=== PATIENT | female | born 1945 | race Caucasian/White ===

== ENCOUNTER → 2022-03-14 | Outpatient (CLI) | payer MEDICARE, BC ==
[2022-03-14 18:53] LABS: HCT 38.3 % (37.2-46.3); HGB 12.3 g/dL (12.0-15.0); MCHC 32.1 g/dL (32.0-37.0); MCV 90.3 fL (80.0-97.0); Mean Platelet Volume 10.3 fL (9.5-12.2); NRBC Per 100 WBC 0 /100 WBCS (0.0-0.0); Platelet Count 116 X 10*3/uL (140-440); RBC 4.24 X 10*6/uL (4.10-5.20); RDW 13.5 % (11.5-14.5); WBC 4.51 X 10*3/uL (4.50-10.00)
[2022-03-14 18:57] LABS: African American GFR (CKD) 79.9 (60.0-200.0); Anion Gap 10.4 mmol/L (10.00-18.00); Blood Urea Nitrogen 9.6 mg/dL (9.0-27.0); Carbon Dioxide 23.9 mmol/L (20.0-27.5); Non-African American GFR(CKD) 68.9 (60.0-200.0)
== END | disposition home or self-care (01) ==
LOC: LABPAT 11:06
PROVIDERS: ATTEND Internal Medicine
DX: Z01.812 Encounter for preprocedural laboratory examination (principal); I65.23 Occlusion and stenosis of bilateral carotid arteries
CPT/HCPCS: 80051; 82565; 84520; 85027

== ENCOUNTER 2022-03-22 06:59 | Inpatient (IN) | payer MEDICARE, BC ==
[~2022-03-22 06:59] MED LIST: ALPRAZolam 0.25 MG TAB PO PRN; ALPRAZolam 0.5 MG TAB PO PRN; NITROGLYCERIN SL TABS 0.4 MG TAB SUBLINGUAL PRN; SODIUM CHLORIDE 0.9% 1,000 ML in EMPTY BAG 1 BAG IV ONE
[2022-03-22] MEDS ORDERED: ASPIRIN 81 MG ONE (07:14)
[2022-03-22 07:32] VITALS: RESP 18; TEMP 96.9
[2022-03-22 07:35] LABS: Glucose,Whole Blood 87 mg/dL (70-110)
[2022-03-22 07:38] LABS: Basophils # (A) 0.1 k/uL (0-0.2); Basophils % (A) 1 %; Eosinophils # (A) 0.2 k/uL (0-0.7); Eosinophils % (A) 4 %; HCT 40.8 % (34.0-46.0); HGB 13.9 gm/dL (11.4-16.0); Lymphocytes # (A) 1.7 k/uL (1.0-4.8); Lymphocytes % (A) 37 %; MCH 30.8 pg (25.0-35.0); MCV 90.6 fL (80.0-100.0); Mean Platelet Volume 7.2; Monocytes # (A) 0.4 k/uL (0-1.0); Monocytes % (A) 8 %; Neutrophils # (A) 2.1 k/uL (1.3-7.7); Neutrophils % (A) 47 %; Platelet Count 128 k/uL (150-450); RBC 4.51 m/uL (3.80-5.40); WBC 4.5 k/uL (3.8-10.6)
[2022-03-22] MEDS ORDERED: HEPARIN SODIUM 1,000 UN/ML (10ML VL) ONE (08:52)
[2022-03-22] MEDS ORDERED: LIDOCAINE 1% INJ 10MG/ML (30 ML VIAL-PF) SQ ONE (08:53)
[2022-03-22] MEDS ORDERED: IOPAMIDOL-250 100ML BTL INTRAARTER ONE ×2 (09:22→09:23)
--- NOTE | 2022-03-22 10:09 | IR ---
EXAMINATION TYPE: IR angio carotid cerv BILAT DATE OF EXAM: 03/22/2022 COMPARISON: NONE HISTORY: Fluoroscopy time. Fluoroscopy was provided to the referring clinician.
--- NOTE | 2022-03-22 10:37 | P.PCN ---
Description of Procedure: DESCRIPTION OF PROCEDURE(S): PROCEDURES PERFORMED: Ascending aortic root angiography, bilateral selective carotid angiography INDICATION: Asymptomatic carotid artery stenosis CONSENT:I have discussed the risks, benefits and alternative therapies for the above-mentioned procedure and for both sedation/analgesia as well as necessary blood product administration, if indicated, as they pertain to this patient. The patient has indicated understanding and acceptance of the risks and procedures discussed. PROCEDURE: After the risks, benefits and alternatives of the above mentioned procedure explained in detail with the patient, informed consent was obtained. Patient was taken to the catheterization lab and prepped and draped in usual fashion. 1% lidocaine was used to anesthetize the right femoral area. A 6- [place]an sheath was placed in the right femoral artery using modified Seldinger technique. A 5-Ch[place]an pigtail catheter was inserted to the ascending aorta and DSA imaging was obtained. Next using VTK catheter the proximal right and left internal carotid arteries were engaged and selective angiography was performed. Given significant bleeding from stoma site in the past, trial of antiplatelets was recommended first before any intervention performed. A right femoral angiogram was performed and anatomoy was suitable for closure. A 6Fr Angioseal was placed with hemostasis achieved. The patient tolerated the procedure well. Patient was transported back to the post catheterization holding area in stable condition. Conscious Sedation: Patient was monitored under the direct supervision of vision of myself for conscious sedation using Versed and fentanyl for a total duration of 29 minutes ASCENDING AORTA: There is no significant aneurysm or stenosis. 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 Right internal carotid artery: 40% proximal ASHLEY stenosis. Left common carotid: No significant stenosis Left internal carotid artery: There is a heavily calcified 90% focal stenosis of the left internal carotid artery at the level of the bifurcation. FINAL IMPRESSION: 1. Bovine arch 2. Right internal carotid artery 40% stenosis and left internal carotid artery 90% stenosis. PLAN: 1. Aggressive risk factor modification per most recent ACC/AHA guidelines. 2. Patient has been having significant bleeding in the past from her stoma requ iring iron transfusions despite not being on antiplatelets. Recommend trial of aspirin and Plavix for 4 weeks and if no significant change in bleeding, would recommend revascularization of the LICA.
[2022-03-22 14:40] VITALS: BP 109/56; PULSE 68
== END 2022-03-22 14:42 | disposition home or self-care (01) | DRG 68 ==
LOC: 2ORMAIN 06:59
PROVIDERS: ADMIT Internal Medicine; ATTEND Internal Medicine
PROC: B3151ZZ Fluoroscopy of Bilateral Common Carotid Arteries using Low Osmolar Contrast (ICD-10-PCS; principal; 2022-03-22 08:30)
PROC: B3101ZZ Fluoroscopy of Thoracic Aorta using Low Osmolar Contrast (ICD-10-PCS; principal; 2022-03-22 08:30)
PROC: B3181ZZ Fluoroscopy of Bilateral Internal Carotid Arteries using Low Osmolar Contrast (ICD-10-PCS; principal; 2022-03-22 08:30)
DX: I65.23 Occlusion and stenosis of bilateral carotid arteries (principal); E11.9 Type 2 diabetes mellitus without complications; D50.9 Iron deficiency anemia, unspecified; I65.01 Occlusion and stenosis of right vertebral artery; Z20.822 Contact with and (suspected) exposure to COVID-19; E78.5 Hyperlipidemia, unspecified; I10 Essential (primary) hypertension; I35.0 Nonrheumatic aortic (valve) stenosis; Z79.82 Long term (current) use of aspirin; Z79.899 Other long term (current) drug therapy
CPT/HCPCS: 85025; 87635

== ENCOUNTER 2022-03-24 21:16 | Emergency (ER) | payer MEDICARE, BC ==
[2022-03-24 21:25] VITALS: TEMP 98.4
[2022-03-24 22:35] LABS: Basophils % (A) 1 %; Eosinophils # (A) 0.2 k/uL (0-0.7); Eosinophils % (A) 5 %; HCT 35.5 % (34.0-46.0); Lymphocytes # (A) 1.6 k/uL (1.0-4.8); Lymphocytes % (A) 39 %; MCH 30.4 pg (25.0-35.0); MCHC 33.7 g/dL (31.0-37.0); Mean Platelet Volume 7.3; Monocytes # (A) 0.3 k/uL (0-1.0); Monocytes % (A) 8 %; Neutrophils # (A) 1.9 k/uL (1.3-7.7); Neutrophils % (A) 45 %; Platelet Count 108 k/uL (150-450); RBC 3.94 m/uL (3.80-5.40); RDW 13.1 % (11.5-15.5); WBC 4.1 k/uL (3.8-10.6)
--- NOTE | 2022-03-24 22:38 | ED ---
General Adult HPI - General Chief complaint: GI Bleed Stated complaint: Colostomy bag issue Time Seen by Provider: 03/24/22 21:29 Source: patient Mode of arrival: ambulatory - History of Present Illness Initial comments: Patient is a 76-year-old woman who presents to have evaluation of her stoma site. Patient has long-standing colostomy and is having some bleeding at the stump. 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 She had called the physician and was instructed to come in to ensure that this was not GI bleeding. The patient describes the bleeding as being from the periphery of the site and notes that she has had this previously but it usually stops bleeding spontaneously. She states that it has continued to bleed and she has been using a towel to absorb the blood and it just continues. She is denying signs and symptoms of anemia. No lightheadedness, palpitations, dyspnea, diaphoresis or syncope. -: hour(s) Severity scale (1-10): 0 Consistency: constant Improves with: none Worsens with: none Associated Symptoms: denies other symptoms Treatments Prior to Arrival: none - Related Data Home Medications Medication Instructions Recorded Confirmed Atorvastatin [Lipitor] 40 mg PO DAILY 04/11/19 03/20/22 lisinopriL [Prinivil] 10 mg PO DAILY 04/11/19 03/22/22 Cyanocobalamin [Vitamin B-12 1,000 mcg SQ WEEKLY 03/21/22 03/22/22 Injection] Previous Rx's Medication Instructions Recorded Aspirin [[place] Aspirin EC] 81 mg PO DAILY #90 tab 03/22/22 Clopidogrel [Plavix] 75 mg PO DAILY #90 tablet 03/22/22 Allergies Allergy/AdvReac Type Severity Reaction Status Date / Time No Known Allergies Allergy Verified 03/24/22 21:25 Review of Systems ROS Statement: Those systems with pertinent positive or pertinent negative responses have been documented in the HPI. ROS Other: All systems not noted in ROS Statement are negative. Constitutional: Denies: fever, chills Respiratory: Denies: cough, dyspnea Cardiovascular: Denies: chest pain, palpitations Gastrointestinal: Denies: abdominal pain, nausea, vomiting Skin: Denies: rash Neurological: Denies: headache, weakness Hematological/Lymphatic: Reports: easy bleeding (Plavix use) Past Medical History Past Medical History: Cancer, Diabetes Mellitus, Hyperlipidemia, Hypertension Additional Past Medical History / Comment(s): RECTAL CANCER. COLOSTOMY-stoma site sometimes bleeds, diet controlled diabetic, iron deficient anemia-has had iron infusions. ABDOMINAL HERNIA. History of Any Multi-Drug Resistant Organisms: None Reported Past Surgical History: Bowel Resection, Hernia Repair Additional Past Surgical History / Comment(s): colostomy Past Anesthesia/Blood Transfusion Reactions: No Reported Reaction Past Psychological History: No Psychological Hx Reported Smoking Status: Never smoker Past Alcohol Use History: None Reported Past Drug Use History: None Reported General Exam General appearance: alert, in no apparent distress Head exam: Present: atraumatic, normocephalic Eye exam: Present: normal appearance Neck exam: Present: normal inspection Respiratory exam: Present: normal lung sounds bilaterally. Absent: respiratory distress, wheezes, rales, rhonchi, stridor Cardiovascular Exam: Present: regular rate, normal rhythm, normal heart sounds. Absent: systolic murmur, diastolic murmur, rubs, gallop GI/Abdominal exam: Present: soft. Absent: distended, tenderness, guarding, rebound, rigid, mass Extremities exam: Present: normal inspection Back exam: Present: normal inspection Neurological exam: Present: alert Skin exam: Present: warm, dry, intact, normal color. Absent: rash Course Vital Signs 03/24/22 21:20 Temperature 98.4 F Pulse Rate 73 Respiratory 19 Rate Blood Pressure 181/69 O2 Sat by Pulse 97 Oximetry Medical Decision Making - Lab Data Result diagrams: 03/24/22 22:14 03/24/22 22:14 Lab Results 03/24/22 03/24/22 03/24/22 Range/Units 22:14 22:14 22:14 WBC 4.1 (3.8-10.6) k/uL RBC 3.94 (3.80-5.40) m/uL Hgb 12.0 (11.4-16.0) gm/dL Hct 35.5 (34.0-46.0) % MCV 90.0 (80.0-100.0) fL MCH 30.4 (25.0-35.0) pg MCHC 33.7 (31.0-37.0) g/dL RDW 13.1 (11.5-15.5) % Plt Count 108 L (150-450) k/uL MPV 7.3 Neutrophils % 45 % Lymphocytes % 39 % Monocytes % 8 % Eosinophils % 5 % Basophils % 1 % Neutrophils # 1.9 (1.3-7.7) k/uL Lymphocytes # 1.6 (1.0-4.8) k/uL Monocytes # 0.3 (0-1.0) k/uL Eosinophils # 0.2 (0-0.7) k/uL Basophils # 0.0 (0-0.2) k/uL PT 11.5 (9.0-12.0) sec INR 1.1 (<1.2) APTT 24.7 (22.0-30.0) sec Sodium 137 (137-145) mmol/L Potassium 4.0 (3.5-5.1) mmol/L Chloride 108 H (98-107) mmol/L Carbon Dioxide 23 (22-30) mmol/L Anion Gap 6 mmol/L BUN 12 (7-17) mg/dL Creatinine 0.86 (0.52-1.04) mg/dL Est GFR (CKD-EPI)AfAm 77 (>60 ml/min/1.73 sqM) Est GFR (CKD-EPI)NonAf 66 (>60 ml/min/1.73 sqM) Glucose 118 H (74-99) mg/dL Plasma Lactic Acid Rowdy (0.7-2.0) mmol/L Calcium 8.9 (8.4-10.2) mg/dL Total Bilirubin 0.5 (0.2-1.3) mg/dL AST 42 H (14-36) U/L ALT 22 (4-34) U/L Alkaline Phosphatase 63 (38-126) U/L Troponin I (0.000-0.034) ng/mL Total Protein 6.8 (6.3-8.2) g/dL Albumin 3.7 (3.5-5.0) g/dL 03/24/22 03/24/22 Range/Units 22:14 22:14 WBC (3.8-10.6) k/uL RBC (3.80-5.40) m/uL Hgb (11.4-16.0) gm/dL Hct (34.0-46.0) % MCV (80.0-100.0) fL MCH (25.0-35.0) pg MCHC (31.0-37.0) g/dL RDW (11.5-15.5) % Plt Count (150-450) k/uL MPV Neutrophils % % Lymphocytes % % Monocytes % % Eosinophils % % Basophils % % Neutrophils # (1.3-7.7) k/uL Lymphocytes # (1.0-4.8) k/uL Monocytes # (0-1.0) k/uL Eosinophils # (0-0.7) k/uL Basophils # (0-0.2) k/uL PT (9.0-12.0) sec INR (<1.2) APTT (22.0-30.0) sec Sodium (137-145) mmol/L Potassium (3.5-5.1) mmol/L Chloride (98-107) mmol/L Carbon Dioxide (22-30) mmol/L Anion Gap mmol/L BUN (7-17) mg/dL Creatinine (0.52-1.04) mg/dL Est GFR (CKD-EPI)AfAm (>60 ml/min/1.73 sqM) Est GFR (CKD-EPI)NonAf (>60 ml/min/1.73 sqM) Glucose (74-99) mg/dL Plasma Lactic Acid Rowdy 1.0 (0.7-2.0) mmol/L Calcium (8.4-10.2) mg/dL Total Bilirubin (0.2-1.3) mg/dL AST (14-36) U/L ALT (4-34) U/L Alkaline Phosphatase (38-126) U/L Troponin I <0.012 (0.000-0.034) ng/mL Total Protein (6.3-8.2) g/dL Albumin (3.5-5.0) g/dL Disposition Clinical Impression: Gastrointestinal hemorrhage Disposition: HOME SELF-CARE Condition: Good Instructions (If sedation given, give patient instructions): Gastrointestinal Bleeding (ED) Is patient prescribed a controlled substance at d/c from ED?: No Referrals: None,Stated [REFERRING] - 1-2 days
[2022-03-24 22:43] LABS: INR 1.1 (<1.2); Partial Thromboplastin Time 24.7 sec (22.0-30.0); Prothrombin Time 11.5 sec (9.0-12.0)
[2022-03-24 23:03] LABS: Albumin 3.7 g/dL (3.5-5.0); Calcium 8.9 mg/dL (8.4-10.2); Total Bilirubin 0.5 mg/dL (0.2-1.3); Total Protein 6.8 g/dL (6.3-8.2)
[2022-03-25 00:35] VITALS: BP 158/68; PULSE 60; RESP 18
== END 2022-03-25 00:35 | disposition home or self-care (01) ==
LOC: EC 21:16
DX: K92.2 Gastrointestinal hemorrhage, unspecified (principal); E11.9 Type 2 diabetes mellitus without complications; I10 Essential (primary) hypertension; E78.5 Hyperlipidemia, unspecified; Z79.82 Long term (current) use of aspirin; Z79.899 Other long term (current) drug therapy
CPT/HCPCS: 36415; 80053; 83605; 84484; 85025; 85610; 85730; 99284

== ENCOUNTER → 2022-06-13 | Outpatient (CLI) | payer MEDICARE, BC ==
[2022-06-13 14:18] LABS: HCT 37.7 % (37.2-46.3); HGB 12.3 g/dL (12.0-15.0); MCH 29.9 pg (27.0-32.0); MCHC 32.6 g/dL (32.0-37.0); MCV 91.5 fL (80.0-97.0); NRBC Per 100 WBC 0 /100 WBCS (0.0-0.0); Platelet Count 128 X 10*3/uL (140-440); RBC 4.12 X 10*6/uL (4.10-5.20); RDW 13.6 % (11.5-14.5); WBC 3.59 X 10*3/uL (4.50-10.00)
[2022-06-13 14:38] LABS: African American GFR (CKD) 89.5 (60.0-200.0); Anion Gap 9.2 mmol/L (10.00-18.00); Blood Urea Nitrogen 12.5 mg/dL (9.0-27.0); Carbon Dioxide 27.2 mmol/L (20.0-27.5); Non-African American GFR(CKD) 77.2 (60.0-200.0); Potassium 4.4 mmol/L (3.5-5.5)
== END | disposition home or self-care (01) ==
LOC: LABWHC1 09:43
PROVIDERS: ATTEND Internal Medicine
DX: Z01.818 Encounter for other preprocedural examination (principal)
CPT/HCPCS: 36415; 80051; 82565; 84520; 85027

== ENCOUNTER 2022-06-21 09:00 | Inpatient (IN) | payer MEDICARE, BC ==
[2022-06-20 11:22] VITALS: BMI 27.1
[~2022-06-21 09:00] MED LIST changes: +RX INFO: IV CONTRAST WAS GIVEN 1 EACH MISC MISCELLANE PRN; -SODIUM CHLORIDE 0.9% 1,000 ML in EMPTY BAG 1 BAG IV ONE
[2022-06-21 09:41] LABS: Glucose,Whole Blood 95 mg/dL (70-110)
[2022-06-21] MEDS: SODIUM CHLORIDE 0.9% 1,000 ML in EMPTY BAG 1 BAG IV ONE ×2 (09:47→17:25)
[2022-06-21] MEDS ORDERED: LIDOCAINE 1% INJ 10MG/ML (30 ML VIAL-PF) SQ ONE (13:00)
[2022-06-21] MEDS ORDERED: HEPARIN SODIUM 1,000 UN/ML (10ML VL) IV ONE (13:10)
[2022-06-21] MEDS ORDERED: IOPAMIDOL-250 100ML BTL INTRAARTER ONE (13:33)
[2022-06-21] MEDS ORDERED: IOPAMIDOL-370 100ML BTL INJ ONE ×3 (13:33→13:45)
[2022-06-21] MEDS ORDERED: ATROPINE SULFATE 0.1 MG/ML 10ML SYRINGE IV ONE (13:45)
--- NOTE | 2022-06-21 14:28 | IR ---
EXAMINATION TYPE: IR stent intravas non coronary DATE OF EXAM: 06/21/2022 COMPARISON: NONE HISTORY: Fluoroscopy time. Fluoroscopy was provided to the referring clinician.
[2022-06-21] MEDS ORDERED: ATROPINE SULFATE 0.1 MG/ML 10ML SYRINGE IV PRN (14:40)
[2022-06-21] MEDS ORDERED: MAG HYDROX/AL HYDROX/SIMETH 30 ML CUP PO PRN (14:40)
[2022-06-21] MEDS: NOREPINEPHRINE 4 MG in SODIUM CHLORIDE 0.9% 250 ML IV SCH (15:07)
[2022-06-21 16:31] LABS: Glucose,Whole Blood 90 mg/dL (70-110)
--- NOTE | 2022-06-21 20:02 | P.OP ---
Description of Procedure: DESCRIPTION OF PROCEDURE(S): PROCEDURES PERFORMED: Ascending aortic root angiography, selective left carotid angiography, carotid stent with 8 x 6 x 30mm Xact carotid stent, post dilated with a 5.0 balloon INDICATION: Severe asymptomatic carotid artery stenosis CONSENT:I have discussed the risks, benefits and alternative therapies for the above-mentioned procedure and for both sedation/analgesia as well as necessary blood product administration, if indicated, as they pertain to this patient. The patient has indicated understanding and acceptance of the risks and procedures discussed. PROCEDURE: After the risks, benefits and alternatives of the above mentioned procedure explained in detail with the patient, informed consent was obtained. Patient was taken to the catheterization lab and prepped and draped in usual fashion. 1% lidocaine was used to anesthetize the right femoral area. A 6- [place] sheath was placed in the right femoral artery using modified Seldinger technique. A 5-[place] pigtail catheter was inserted to the ascending aorta and DSA imaging was obtained. Next using VTK catheter the proximal left common carotid artery was engaged and selective angiography was performed. Angiography showed severe 90% stenosis and therefore intervention was recommended. Heparin was given for ACT greater than 250. Next a 0.035 glide advantage was advanced into the left external carotid artery. Over the glide advantage wire, a 6-[place] destination sheath was advanced into the left common carotid artery. Next a 0.014 Embo shield distal embolic protection device was advanced into the petrous portion of the left internal carotid artery. The filter was then deployed. Next predilation was performed with a 3.0 x 20mm then a 4.0 x 20 mm balloon. Next a 8 x 6 x 30 mm Xact carotid stent was deployed. The stent was postdilated with a 5.0 x 20 mm balloon. Pre-intervention there was 90% stenosis with uninhibited flow and postintervention there was 10% stenosis with uninhibited flow. A right femoral angiogram was performed and anatomoy was suitable for closure. A 6Fr Angioseal was placed with hemostasis achieved. The patient tolerated the procedure well. Patient was transported back to the post catheterization holding area in stable condition. ASCENDING AORTA: There is no significant aneurysm or stenosis. 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 Right common carotid: 0% stenosis Right internal carotid artery: Not fully imaged however does not appear to have any significant stenosis Left common carotid: 0% stenosis Left internal carotid artery: 90% stenosis FINAL IMPRESSION: 1. 90% left internal carotid artery stenosis, status post carotid stent with 8 x 6 x 30mm Xact carotid stent, post dilated with a 5.0 balloon with excellent result PLAN: 1. Aggressive risk factor modification per most recent ACC/AHA guidelines. 2. Continue dual antiplatelets with aspirin and Plavix for minimum of 3 months. 3. Monitor for any hemodynamic or electrical instability.
[2022-06-22 04:15] LABS: Basophils % (A) 1 %; Eosinophils # (A) 0.2 k/uL (0-0.7); Eosinophils % (A) 4 %; HCT 32.8 % (34.0-46.0); Lymphocytes # (A) 1.3 k/uL (1.0-4.8); Lymphocytes % (A) 34 %; MCH 31.1 pg (25.0-35.0); MCHC 33.6 g/dL (31.0-37.0); MCV 92.5 fL (80.0-100.0); Monocytes # (A) 0.3 k/uL (0-1.0); Monocytes % (A) 8 %; Neutrophils % (A) 51 %; RBC 3.55 m/uL (3.80-5.40); RDW 13.1 % (11.5-15.5); WBC 3.9 k/uL (3.8-10.6)
[2022-06-22 04:40] LABS: African American GFR (CKD) >90 (>60 ml/min/1.73 sqM); Anion Gap 8 mmol/L; Blood Urea Nitrogen 10 mg/dL (7-17); Calcium 7.8 mg/dL (8.4-10.2); Carbon Dioxide 19 mmol/L (22-30); Chloride 110 mmol/L (98-107); Glucose 108 mg/dL (74-99); Non-African American GFR(CKD) >90 (>60 ml/min/1.73 sqM); Potassium 3.9 mmol/L (3.5-5.1); Sodium 137 mmol/L (137-145)
[2022-06-22 04:45] LABS: Platelet Count 78 k/uL (150-450)
[2022-06-22] MEDS ORDERED: Potassium Replacement Protocol 1 EACH MISC MISCELLANE PRN (04:55)
[2022-06-22] MEDS ORDERED: POTASSIUM CHLORIDE ER 20 MEQ TAB.ER PO SCH (05:00)
[2022-06-22] MEDS: lisinopriL 10 MG TAB PO SCH (10:02)
[2022-06-22] MEDS: MULTIVITAMINS, THERA 1 EACH TAB PO SCH (10:43)
[2022-06-22] MEDS: ATORVASTATIN 40 MG TAB PO SCH (10:43)
[2022-06-22] MEDS: CLOPIDOGREL 75 MG TAB PO SCH (10:43)
[2022-06-22] MEDS: ASPIRIN 81 MG PO SCH (10:43)
--- NOTE | 2022-06-22 12:23 | P.PN ---
Subjective HISTORY OF PRESENTING ILLNESS Patient is a pleasant 76-year-old female with history of hypertension hyperlipidemia mild aortic stenosis, diabetes mellitus, asymptomatic carotid artery stenosis who presented 06/21 for outpatient carotid angiogram and stenting. Patient underwent angiogram from a right femoral approach with findings of 90% stenosis. Therefore stenting was performed and patient did well with procedure. She has had borderline blood pressures and admits she has had some issues with lower blood pressures after prior surgeries over last 10-15 years. Somewhat concerning for adrenal insufficiency. She has required low- dose norepinephrine with systolics in the 90s to 100 100s. She denies any lightheadedness or dizziness. PHYSICAL EXAMINATION Vital signs reviewed. CONSTITUTIONAL: No apparent distress. HEENT: Head is normocephalic. Pupils are equal, round. Sclerae anicteric. Mucous membranes of the mouth are moist. No JVD. No carotid bruit. CHEST EXAMINATION: Lungs are clear to auscultation. No chest wall tenderness is noted on palpation or with deep breathing. HEART EXAMINATION: Regular rate and rhythm. S1, S2 heard. No murmurs, gallops or rub. ABDOMEN: Soft, nontender. Positive bowel sounds. EXTREMITIES: 2+ peripheral pulses, no lower extremity edema and no calf tenderness. NEUROLOGIC EXAMINATION: Patient is awake, alert and oriented x3. ASSESSMENT 1. Left internal carotid artery 90% stenosis status post stenting 06/21/2022 2. Borderline hypotension. Similar episodes previously with surgeries may be related to adrenal insufficiency 3. History of hypertension 4. Hyperlipidemia 5. History of anemia 6. Thrombocytopenia, has been low in the past PLAN We will attempt to wean vasopressors as able. Check cortisol for completeness sake. Hold lisinopril for now. Hopefully if blood pressures remain stable off vasopressors by this afternoon, patient may be discharged home. Continue dual antiplatelets and monitor hemoglobin closely. Objective - Vital Signs Vital signs: Vital Signs Temp 98.4 F 06/22/22 12:00 Pulse 56 L 06/22/22 12:00 Resp 11 L 06/22/22 12:00 BP 101/41 06/22/22 12:00 Pulse Ox 97 06/22/22 12:00 FiO2 Intake & Output 06/21/22 06/22/22 06/22/22 18:59 06:59 18:59 Intake Total 814.334 3224.500 492.067 Output Total 50 1250 0 Balance 682.672 -146.500 492.067 Weight 64.2 kg 64.9 kg Intake: IV 594 960 480 Sodium Chloride 0.9% 1, 144 960 480 000 ml In Empty Bag 1 bag @ 80 mls/hr IV .[id number] ONE Rx#:[id number] Intake, IV Titration 18.672 143.500 12.067 Amount Norepinephrine 4 mg In 18.672 143.500 12.067 Sodium Chloride 0.9% 250 ml @ 0.01 MCG/KG/MIN 2. 446 mls/hr IV .Q24H [facility] Rx#:[id number] Oral 120 Output: Urine 50 1250 0 Other: Voiding Method Bedpan Bedside Commode Bedside Commode - Labs CBC & Chem 7: 06/22/22 03:37 06/22/22 03:37 Labs: Abnormal Lab Results - Last 24 Hours (Table) 06/22/22 06/22/22 Range/Units 03:37 03:37 RBC 3.55 L (3.80-5.40) m/uL Hgb 11.0 L (11.4-16.0) gm/dL Hct 32.8 L (34.0-46.0) % Plt Count 78 L (150-450) k/uL Chloride 110 H (98-107) mmol/L Carbon Dioxide 19 L (22-30) mmol/L Glucose 108 H (74-99) mg/dL Calcium 7.8 L (8.4-10.2) mg/dL
[2022-06-22] MEDS: NOREPINEPHRINE 4 MG in SODIUM CHLORIDE 0.9% 250 ML IV SCH (17:06)
[2022-06-23 06:23] LABS: HGB 10.9 gm/dL (11.4-16.0); MCH 31.8 pg (25.0-35.0); MCHC 35.3 g/dL (31.0-37.0); MCV 90.2 fL (80.0-100.0); Mean Platelet Volume 7.9; RBC 3.43 m/uL (3.80-5.40); RDW 13.3 % (11.5-15.5); WBC 3.2 k/uL (3.8-10.6)
[2022-06-23 06:28] LABS: Platelet Count 68 k/uL (150-450)
[2022-06-23 06:31] LABS: African American GFR (CKD) >90 (>60 ml/min/1.73 sqM); Anion Gap 6 mmol/L; Blood Urea Nitrogen 6 mg/dL (7-17); Calcium 7.8 mg/dL (8.4-10.2); Carbon Dioxide 21 mmol/L (22-30); Chloride 112 mmol/L (98-107); Glucose 90 mg/dL (74-99); Non-African American GFR(CKD) >90 (>60 ml/min/1.73 sqM); Potassium 3.8 mmol/L (3.5-5.1); Sodium 139 mmol/L (137-145)
[2022-06-23] MEDS ORDERED: POTASSIUM BICARBONATE/CIT AC 20 MEQ TABLET.EFF NG-TUBE SCH (07:00)
--- NOTE | 2022-06-23 08:40 | P.DS ---
Providers Date of admission: 06/21/22 09:00 Attending physician: Lew Cameron DO Consults: 06/21/22 14:40 Consult Physician Routine Consulting Provider: Lew Cameron Consult Reason/Comments: Post Interventional Patient Do you want consulting provider notified?: Already Contacted Primary care physician: Chanda Muñoz [facility] Course: Patient is pleasant 76-year-old female who presented for elective left carotid stent which was uneventful 06/21 from a right femoral approach. She did have hypotensive postoperatively mainly felt related to the carotid intervention however required vasopressors for a little over 24 hours. Her coronaries always noted to be mildly low and may consider adrenal insufficiency workup as she has had similar issues with surgeries in the past. This can be done as an outpatient. Her platelet levels have been low in the past and appeared stable. She is not having any significant symptomatology and appeared stable for discharge home 06/23 with outpatient follow-up in 1 week. Plan - Discharge Summary Discharge Rx Participant: Yes New Discharge Prescriptions: No Action lisinopriL [Prinivil] 10 mg PO DAILY Atorvastatin [Lipitor] 40 mg PO DAILY Clopidogrel [Plavix] 75 mg PO DAILY #90 tablet Aspirin [[place] Aspirin EC] 81 mg PO DAILY #90 tab Cyanocobalamin [Vitamin B-12 Injection] 1,000 mcg SQ WEEKLY Multivit with Calcium,Iron,Min [Women's Multivitamin] 1 each PO DAILY Discharge Medication List Atorvastatin [Lipitor] 40 mg PO DAILY 04/11/19 [History] lisinopriL [Prinivil] 10 mg PO DAILY 04/11/19 [History] Cyanocobalamin [Vitamin B-12 Injection] 1,000 mcg SQ WEEKLY 03/21/22 [History] Aspirin [[place] Aspirin EC] 81 mg PO DAILY #90 tab 03/22/22 [Rx] Clopidogrel [Plavix] 75 mg PO DAILY #90 tablet 03/22/22 [Rx] Multivit with Calcium,Iron,Min [Women's Multivitamin] 1 each PO DAILY 06/20/22 [History]
[2022-06-23] MEDS: lisinopriL 10 MG TAB PO SCH (09:33)
[2022-06-23] MEDS: MULTIVITAMINS, THERA 1 EACH TAB PO SCH (09:44)
[2022-06-23] MEDS: ASPIRIN 81 MG PO SCH (09:44)
[2022-06-23] MEDS: ATORVASTATIN 40 MG TAB PO SCH (09:44)
[2022-06-23] MEDS: CLOPIDOGREL 75 MG TAB PO SCH (09:44)
[2022-06-23 13:32] VITALS: BP 105/43; PULSE 63; RESP 28; TEMP 98.1
[2022-06-28] MEDS ORDERED: CYANOCOBALAMIN 1,000 MCG/ML 1 ML VIAL SQ SCH (09:00)
--- NOTE | 2022-06-29 08:48 | CDI ---
Documentation Clarification Form Date: 06/29/2022 08:03:22 AM From: Britta Ramos RN CCDS Admit Date: 06/21/2022 09:00:00 AM Patient Name: Lisa Calvert Visit Number: [id number] Discharge Date: 06/23/2022 01:45:00 PM ATTENTION: The Clinical Documentation Specialists (CDI) and [facility] Coding Staff appreciate your assistance in clarifying documentation. Please respond to the clarification below the line at the bottom and electronically sign. The CDI & [facility] Coding staff will review the response and follow-up if needed. Please note: Queries are made part of the Legal Health Record. If you have any questions, please contact the author of this message via ITS. Dr. Lew Cameron Adrenal Insufficiency is documented 06/23, which may lack sufficient clinical evidence/support in the medical record. Additional clarification is requested. History/Risk Factors:76-year-old female presents [facility] with carotid atherosclerosis for elective carotid angiography with stenting and ballooning. Medical History: Aortic stenosis, Benign essential HTN and DM. H&P, 06/20. Clinical Indicators: VSS: 06/21/22 14:50 B/P 99/51; HR 63; RR 18; SpO2 98% room air . Supine 06/21/22 16:40 B/P 101/54; HR 65; RR 15; SpO2 96% room air. 06/21/22 17:15 B/P 83/42; HR 60; RR 17; SpO2 96% room air 06/22/22 01:00 B/P 130/50; HR 49; RR 22; SpO2 96% room air Lab, 06/22: Cortisol 7 Progress note, 06/22: Borderline hypotension. Similar episodes previously with surgeries maybe related to adrenal insufficiency. We will attempt to wean vasopressors as able. Check cortisol for completenesss sake. DCS, 06/23: She did have hypotensive postoperatively mainly felt related to the carotid intervention however required vasopressors for a little over 24 hours. Her coronaries always noted to be mildly low and may consider adrenal insufficiency workup as she has had similar issues with surgeries in the past. This can be done as an outpatient. Her platelet levels have been low in the past and appeared stable. She is not having any significant symptomatology and appeared stable for discharge home 06/23 with outpatient follow-up in 1 week. Treatment:06/21 06/23 Norepinephrine IV; Cortisol lab. Please clarify if Adrenal insufficiency is a valid diagnosis? [ ] Yes, Adrenal insufficiency is present as evidence by (additional clinical support): [ ] No, Adrenal insufficiency is ruled out [ X ] Other (please specify diagnosis) _Possible adrenal insufficiency and no definitive diagnosis of adrenal insufficiency (as stated in original note) [ ] Unable to determine (Template Last Revised: November 2020) MTDD
== END 2022-06-23 13:45 | disposition home or self-care (01) | DRG 35 ==
LOC: 2ORMAIN 09:00 → 2SICU 16:06
PROVIDERS: ADMIT Internal Medicine; ATTEND Internal Medicine
PROC: 0WJ60ZZ Inspection of Neck, Open Approach (ICD-10-PCS; principal; 2022-06-21 10:30)
PROC: 037L3ZZ Dilation of Left Internal Carotid Artery, Percutaneous Approach (ICD-10-PCS; principal; 2022-06-21 10:30)
PROC: B3101ZZ Fluoroscopy of Thoracic Aorta using Low Osmolar Contrast (ICD-10-PCS; principal; 2022-06-21 10:30)
PROC: B41F1ZZ Fluoroscopy of Right Lower Extremity Arteries using Low Osmolar Contrast (ICD-10-PCS; principal; 2022-06-21 10:30)
PROC: 3E043XZ Introduction of Vasopressor into Central Vein, Percutaneous Approach (ICD-10-PCS; principal; 2022-06-21 10:30)
PROC: 037J34Z Dilation of Left Common Carotid Artery with Drug-eluting Intraluminal Device, Percutaneous Approach (ICD-10-PCS; principal; 2022-06-21 10:30)
DX: I65.22 Occlusion and stenosis of left carotid artery (principal); E27.40 Unspecified adrenocortical insufficiency; E78.5 Hyperlipidemia, unspecified; I95.89 Other hypotension; I10 Essential (primary) hypertension; R73.03 Prediabetes; Z79.02 Long term (current) use of antithrombotics/antiplatelets; Z79.899 Other long term (current) drug therapy
CPT/HCPCS: 37215; 80048; 82533; 85025; 85027

== ENCOUNTER → 2022-07-07 | Outpatient (CLI) | payer MEDICARE, BC ==
[2022-07-07 17:49] LABS: Anion Gap 10.9 mmol/L (10.00-18.00); Carbon Dioxide 23.1 mmol/L (20.0-27.5); Potassium 4.2 mmol/L (3.5-5.5)
[2022-07-07 21:46] LABS: % Iron Saturation 19.49 (12.00-45.00)
[2022-07-08 11:38] LABS: Magnesium 2.1 mg/dL (1.5-2.4)
[2022-07-08 11:41] LABS: Basophils # (A) 0.02 X 10*3/uL (0.00-0.10); Basophils % (A) 0.6 %; Eosinophils # (A) 0.13 X 10*3/uL (0.04-0.35); HCT 37.2 % (37.2-46.3); HGB 12.2 g/dL (12.0-15.0); Immature Grans, Automated 0 %; Lymphocytes # (A) 0.99 X 10*3/uL (0.90-5.00); Lymphocytes % (A) 30.4 %; MCH 30.1 pg (27.0-32.0); MCHC 32.8 g/dL (32.0-37.0); MCV 91.9 fL (80.0-97.0); Mean Platelet Volume 10.4 fL (9.5-12.2); Monocytes # (A) 0.31 X 10*3/uL (0.20-1.00); Monocytes % (A) 9.5 %; NRBC Per 100 WBC 0 /100 WBCS (0.0-0.0); Neutrophils # (A) 1.81 X 10*3/uL (1.80-7.70); Neutrophils % (A) 55.5 %; Platelet Count 152 X 10*3/uL (140-440); RBC 4.05 X 10*6/uL (4.10-5.20); RDW 14.6 % (11.5-14.5); WBC 3.26 X 10*3/uL (4.50-10.00)
== END | disposition home or self-care (01) ==
LOC: LABWHC1 10:19
PROVIDERS: ATTEND Family Medicine
DX: E11.9 Type 2 diabetes mellitus without complications (principal); D64.9 Anemia, unspecified; E87.6 Hypokalemia
CPT/HCPCS: 36415; 80051; 83036; 83540; 83550; 83735; 85025

== ENCOUNTER → 2023-12-21 | Outpatient (CLI) | payer MEDICARE, BC ==
[2023-12-21 16:30] LABS: Basophils # (A) 0.03 X 10*3/uL (0.00-0.10); Basophils % (A) 0.8 %; Eosinophils # (A) 0.15 X 10*3/uL (0.04-0.35); Eosinophils % (A) 3.9 %; HCT 39.3 % (37.2-46.3); HGB 13.3 g/dL (12.0-15.0); Lymphocytes # (A) 1.38 X 10*3/uL (0.90-5.00); Lymphocytes % (A) 35.6 %; MCH 29.6 pg (27.0-32.0); MCHC 33.8 g/dL (32.0-37.0); MCV 87.3 FL (80.0-97.0); Mean Platelet Volume 9.9 FL (9.5-12.2); Monocytes # (A) 0.46 X 10*3/uL (0.20-1.00); Monocytes % (A) 11.9 %; NRBC Per 100 WBC 0 X 10*3/uL (0.00-0.01); Neutrophils # (A) 1.85 X 10*3/uL (1.80-7.70); Neutrophils % (A) 47.5 %; Platelet Count 143 X 10*3/uL (140-440); RDW 13.4 % (11.5-14.5); WBC 3.88 X 10*3/uL (4.50-10.00)
[2023-12-21 16:54] LABS: ALT 31 U/L (8-44); AST 44 U/L (13-35); Albumin 4.3 g/dL (3.8-4.9); Albumin/Globulin Ratio 1.43 Ratio (1.60-3.17); Alkaline Phosphatase 63 U/L (41-126); BUN/Creat Ratio 19.88 Ratio (12.00-20.00); Blood Urea Nitrogen 15.9 mg/dL (9.0-27.0); Calcium 9.3 mg/dL (8.7-10.3); Carbon Dioxide 20.9 mmol/L (21.6-31.8); Chloride 104 mmol/L (96-109); Chol/HDL Ratio 2.01 Ratio; Glucose 98 mg/dL (70-110); LDL Cholesterol,Calculated 58.1 mg/dL (0.0-131.0); Potassium 4.3 mmol/L (3.5-5.5); Sodium 137 mmol/L (135-145); Total Bilirubin 0.8 mg/dL (0.3-1.2); Total Protein 7.3 g/dL (6.2-8.2); VLDL Calculation 16.16 mg/dL (5.00-40.00)
== END | disposition home or self-care (01) ==
LOC: LABWHC1 09:17
PROVIDERS: ATTEND Internal Medicine Clinical Cardiac Electrophysiology
DX: I10 Essential (primary) hypertension (principal); I25.10 Atherosclerotic heart disease of native coronary artery without angina pectoris; E78.5 Hyperlipidemia, unspecified
CPT/HCPCS: 36415; 80053; 80061; 83036; 83735; 84443; 85025